=== PATIENT | male | born 1980 | race Caucasian/White ===

== ENCOUNTER 2016-07-12 20:55 | Emergency (ER) | payer SELFPAY ==
[2016-07-12] MEDS ORDERED: Morphine INJ* 4 MG/ML 1 ML CARPUJECT IV ONE ×2 (21:07→22:20)
[2016-07-12] MEDS ORDERED: Ondansetron INJ* 2 MG/ML VIAL IV ONE (21:07)
[2016-07-12] MEDS ORDERED: NS 0.9% 1000 ML* 1,000 ML IV ONE (21:07)
--- NOTE | 2016-07-12 21:43 | ED ---
I, Adiel,Angelia, scribed for Kyle Alcocer MD on 07/12/16 at 2113 . Abdominal Pain/Male - HPI Summary HPI Summary: This 36 y/o male presents to ED for gradual onset of lower abd pain since 2 days ago. Pt decided to come in to ED tonight when he became concerned with increasing pain, currently rated 9/10. Positive for n/v and chills. Negative diarrhea. Pt took ibuprofen without much relief of his abd pain. PMHx includes colitis, for which pt was admitted at [facility] 2 years ago. Pt states that his abd pain is similar to his last flare up of colitis 2 years ago. Pt denies hx of ulcer. FHx is positive for DM to father. Pt is current heavy everyday smoker and occasional drinker. - History of Current Complaint Stated Complaint: ABD PAIN Hx Obtained From: Patient, Medical Records Onset/Duration: Gradual Onset, Lasting Days - 2 days ago, Still Present Timing: Constant Pain Intensity: 9 Pain Scale Used: 0-10 Numeric Location: Discrete At: RLQ, Discrete At: LLQ Radiates: No Character: Dull, Cramping Aggravating Factor(s): Nothing Alleviating Factor(s): Nothing Associated Signs And Symptoms: Positive: Nausea, Vomiting. Negative: Fever - Allergies/Home Medications Allergies/Adverse Reactions: Allergies Allergy/AdvReac Type Severity Reaction Status Date / Time No Known Allergies Allergy Verified 03/06/16 15:11 PMH/Surg Hx/FS Hx/Imm Hx Endocrine/Hematology History: Denies: Hx Diabetes, Hx Thyroid Disease Cardiovascular History: Denies: Hx Congestive Heart Failure, Hx Hypertension Respiratory History: Denies: Hx Chronic Obstructive Pulmonary Disease (COPD) GI History: Reports: Other GI Disorders - colitis Denies: Hx Ulcer History: Denies: Hx Renal Disease Musculoskeletal History: Reports: Hx Back Problems Sensory History: Denies: Hx Contacts or Glasses Opthamlomology History: Denies: Hx Contacts or Glasses - Surgical History Surgery Procedure, Year, and Place: LEFT ARM NODES REMOVED S/P CAT SCRATCH FEVER 20 YEARS AGO Infectious Disease History: No Infectious Disease History: Reports: Hx of Known/Suspected MRSA - MRSA 09/12/13 Denies: Hx Clostridium Difficile, Hx Hepatitis, Hx Human Immunodeficiency Virus (HIV), Hx Shingles, Hx Tuberculosis, Hx Known/Suspected VRE, Hx Known/ Suspected VRSA, History Other Infectious Disease, Traveled Outside the [place] in Last 30 Days - Family History Known Family History: Positive: Cardiac Disease - grandmother, Diabetes - father - Social History Alcohol Use: Rare Hx Substance Use: No Substance Use Type: Reports: None Substance Use Comment - Amount & Last Used: occasionally Hx Tobacco Use: Yes Smoking Status (MU): Heavy Every Day Tobacco Smoker Type: Cigarettes Amount Used/How Often: 1 PPD Length of Time of Smoking/Using Tobacco: 10+ YEARS Have You Smoked in the Last Year: Yes Review of Systems Positive: Chills. Negative: Fever Positive: Abdominal Pain, Vomiting, Nausea Negative: Anxious, Depressed All Other Systems Reviewed And Are Negative: Yes Physical Exam Triage Information Reviewed: Yes Vital Signs On Initial Exam: Initial Vitals Temp Pulse Resp BP Pulse Ox 98.3 F 93 16 147/80 100 07/12/16 21:01 07/12/16 21:01 07/12/16 21:01 07/12/16 21:01 07/12/16 21:01 Vital Signs Reviewed: Yes Appearance: Positive: Well-Appearing, Pain Distress - moderate lower abd pain Skin: Positive: Warm Eyes: Positive: EMMA ENT: Positive: Hearing grossly normal Neck: Positive: Supple Respiratory/Lung Sounds: Positive: Clear to Auscultation, Breath Sounds Present Cardiovascular: Positive: RRR Abdomen Description: Positive: No Organomegaly, Soft, Other: - mild diffuse lower abd tendwernes. Negative: Guarding Bowel Sounds: Positive: Present Musculoskeletal: Positive: Strength/ROM Intact Neurological: Positive: Sensory/Motor Intact, Alert, Oriented to Person Place, Time Diagnostics - Vital Signs Vital Signs Temp Pulse Resp BP Pulse Ox 07/12/16 21:01 98.3 F 93 16 147/80 100 - Laboratory Result Diagrams: 07/12/16 21:20 07/12/16 21:20 Lab Statement: Any lab studies that have been ordered have been reviewed, and results considered in the medical decision making process. - CT Ab/P CT Interpretation: Positive (See Comments) - Focal wall thickening of the signmoid colon with pericolonic infiltration of fat most suspicious for diverticulitis with no abscess. However, given the appearance and lobulation, the possibility of underlying mass is not totally excluded and f/u exam is suggested. No hernias are noted. CT Interpretation Completed By: Radiologist Re-Evaluation - Re-Evaluation First Eval Re-Evaluation Time: 23:31 - mildly improved, results d/w pt Change: Improved Abdominal Pain Fem Course/Dx - Course Assessment/Plan: This 36 y/o male presents to ED with chief complaint of gradually worsening lower abd pain since 2 days ago. PMHx is significant for colitis, and pt states that the pain feels similar to his previous flare-up of colitis. He reports positive n/v and chills, but denies any diarrhea. Bloodwork indicates WBC of 11.3, which is similar to prior levels, and CRP of 38.57. CT Ab/P indicates diverticulitis without abscess. UA is wnl. - Diagnoses Provider Diagnoses: Diverticulitis Discharge - Discharge Plan Condition: Improved Disposition: HOME Prescriptions: Levofloxacin TAB* [Levaquin TAB*] 500 mg PO DAILY #7 tab Metronidazole [Flagyl 500 MG TAB] 500 mg PO TID #20 tab Patient Education Materials: Metronidazole (By mouth), Levofloxacin (By mouth) , Diverticulitis (ED) Referrals: [facility] REFERRAL [Outside] No Primary Care Phys,NOPCP [Primary Care Provider] - 2 Days The documentation as recorded by the Adiel vázquez Soohyun accurately reflects the service I personally performed and the decisions made by me, Kyle Alcocer MD.
[2016-07-12 21:45] LABS: Hematocrit 44 % (42-52); Hemoglobin 14.8 g/dl (14.0-18.0); Mean Corpuscular HGB Conc 33 g/dl (31-36); Mean Corpuscular Hemoglobin 29 pg (27-31); Mean Corpuscular Volume 86 fL (80-94); Mean Platelet Volume 9 um3 (7.4-10.4); Red Blood Count 5.16 10^6/ul (4.0-5.4); Red Cell Distribution Width 14 % (10.5-15); White Blood Count 11.3 10^3/ul (3.5-10.8)
[2016-07-12 21:58] LABS: Albumin 3.8 g/dL (3.2-5.2); C Reactive Protein 38.57 mg/L (< 5.00); Calcium 8.7 mg/dL (8.6-10.3); EGFR African American 131.9 (>60); EGFR Non-African American 102.6 (>60); Globulin 2.8 g/dL (2-4); Magnesium 1.9 mg/dL (1.9-2.7); Total Bilirubin 0.3 mg/dL (0.2-1.0); Total Protein 6.6 g/dL (6.4-8.9)
[2016-07-12] MEDS ORDERED: Iohexol 300* (CONTRAST) 10 ML SDV IV ONE (22:00)
[2016-07-12 22:14] LABS: Potassium 3.6 mmol/L (3.5-5.0)
[2016-07-12] MEDS ORDERED: metroNIDAZOLE IV 500 MG/100ML* 500 MG/100 ML BAG IVPB ONE (23:30)
[2016-07-12] MEDS ORDERED: HYDROmorphone INJ* 1 MG/ML CARPUJECT SYRINGE IV SLOW PU ONE (23:30)
[2016-07-12] MEDS ORDERED: Levofloxacin 500 MG IVPREMIX(* 500 MG/100 ML BAG IVPB ONE (23:30)
[2016-07-12 23:45] LABS: Urine Bilirubin Negative (Negative); Urine Glucose Negative (Negative); Urine Nitrite Negative (Negative)
[2016-07-13] MEDS ORDERED: oxyCODONE/Acetamin 5/325 MG* TAB PO ONE (01:58)
[2016-07-13 02:22] VITALS: BP 116/62
--- NOTE | 2016-07-13 07:37 | RAD ---
INDICATION: Lower abdominal pain. COMPARISON: Comparison is made with a prior CT of the abdomen and pelvis from October 31, 2013. TECHNIQUE: A CT scan of the abdomen and pelvis was performed with intravenous and oral contrast following intravenous injection of 133 ml of Omnipaque 300 nonionic contrast. Contiguous axial sections were obtained from the lung bases through the symphysis pubis. Images were reconstructed in the coronal and sagittal planes. FINDINGS: The lung bases are clear. No pleural effusion is present. The liver and spleen are mildly enlarged without significant focal abnormality. The gallbladder appears contracted. No calcified gallstones are seen. The pancreas appears to be within normal limits. The kidneys and adrenal glands are normal in size. No hydronephrosis is seen. No significant focal renal abnormality is seen. The aorta is normal in caliber and demonstrates homogeneous contrast opacification. No significant enlarged retroperitoneal lymph nodes are seen. The stomach is distended with contrast and food debris. The small bowel colon appear nondistended. The appendix is within normal limits. There is moderate sigmoid diverticulosis. There is mild thickening of the wall of the mid sigmoid colon with stranding in the adjacent mesenteric fat. These findings are nonspecific although most consistent with diverticulitis. No abscess is seen. There is a small periumbilical hernia containing fat. There is a trace amount of free intraperitoneal fluid in the pelvis. No free intraperitoneal air is seen. No significant focal osseous abnormality is seen. Note is made of small disc protrusions at the L4-L5 and L5-S1 levels. IMPRESSION: 1. FINDINGS MOST CONSISTENT WITH DIVERTICULITIS. RECOMMEND CLINICAL CORRELATION. 2. MILD HEPATOSPLENOMEGALY. 3. MODERATE GASTRIC DISTENTION WITH CONTRAST AND FOOD DEBRIS.
== END 2016-07-13 02:18 | disposition home or self-care (01) ==
LOC: ED 20:55
DX: K57.92 Diverticulitis of intestine, part unspecified, without perforation or abscess without bleeding (principal); R11.2 Nausea with vomiting, unspecified; F17.210 Nicotine dependence, cigarettes, uncomplicated; R10.9 Unspecified abdominal pain; R16.2 Hepatomegaly with splenomegaly, not elsewhere classified
CPT/HCPCS: 36415; 74177; 80053; 81003; 83605; 83690; 83735; 85025; 86140; 96374; 96375; 99284; A9270-GY; J1170; J1956; J2270; J2405; J3490; Q9967

== ENCOUNTER 2016-07-28 19:07 | Inpatient (IN) | payer SELFPAY ==
[2016-07-28] MEDS ORDERED: Ondansetron INJ* 2 MG/ML VIAL IV ONE ×2 (20:31→22:47)
[2016-07-28] MEDS ORDERED: Morphine INJ* 4 MG/ML 1 ML CARPUJECT IV ONE (20:31)
[2016-07-28] MEDS ORDERED: NS 0.9% 1000 ML* 1,000 ML IV ONE (20:31)
[2016-07-28] MEDS ORDERED: Acetaminophen TAB* 325 MG PO ONE (20:34)
[2016-07-28 20:40] LABS: Hematocrit 45 % (42-52); Hemoglobin 15.1 g/dl (14.0-18.0); Mean Corpuscular HGB Conc 33 g/dl (31-36); Mean Corpuscular Hemoglobin 28 pg (27-31); Mean Corpuscular Volume 84 fL (80-94); Mean Platelet Volume 8 um3 (7.4-10.4); Red Blood Count 5.36 10^6/ul (4.0-5.4); Red Cell Distribution Width 13 % (10.5-15); White Blood Count 11.4 10^3/ul (3.5-10.8)
[2016-07-28 20:42] LABS: Add Diff/Slide Review? Slide Review Added; Comments Flag Yes
[2016-07-28 20:51] LABS: Albumin 3.8 g/dL (3.2-5.2); BUN/Creatinine Ratio 14.8 (8-20); C Reactive Protein 1.72 mg/L (< 5.00); Calcium 8.8 mg/dL (8.6-10.3); EGFR African American 126.7 (>60); EGFR Non-African American 98.6 (>60); Globulin 2.7 g/dL (2-4); Potassium 3.6 mmol/L (3.5-5.0); Total Bilirubin 0.5 mg/dL (0.2-1.0); Total Protein 6.5 g/dL (6.4-8.9)
[2016-07-28] MEDS ORDERED: HYDROmorphone INJ* 1 MG/ML CARPUJECT SYRINGE IV SLOW PU ONE (21:05)
[2016-07-28] MEDS ORDERED: Iohexol 300* (CONTRAST) 10 ML SDV IV ONE (22:06)
[2016-07-28 22:13] LABS: Urine Bilirubin Negative (Negative); Urine Glucose Negative (Negative); Urine Nitrite Negative (Negative)
[2016-07-28] MEDS ORDERED: HYDROmorphone INJ* 2 MG/ML CARPUJECT SYRINGE IV SLOW PU ONE (22:46)
[2016-07-28] MEDS ORDERED: Ondansetron INJ* 2 MG/ML VIAL ONE (22:49)
--- NOTE | 2016-07-28 22:56 | RAD ---
Indication: Left lower quadrant pain. Contrast: Administered 150.0 ml of OMNIPAQUE 300 mgi/ml CT of the abdomen and pelvis was performed after oral and IV contrast administration. Lung bases demonstrate no pleural fluid, nodules or masses. Heart is of normal size without evidence of pericardial effusion. Liver is normal in size. No focal lesions or intrahepatic ductal dilatation is noted. The gallbladder is partially contracted. No calcified gallstones are noted. Pancreas demonstrates no mass or pancreatic ductal dilatation. The common duct is not dilated. The spleen is normal in size. No adrenal lesions are noted. The kidneys demonstrate symmetric nephrograms without focal lesions. No hydronephrosis is noted. Pancreas demonstrates no mass or pancreatic duct dilatation. No dilated loops of bowel are noted. Aorta and inferior vena cava are unremarkable. No retroperitoneal lymphadenopathy is noted. CT of the pelvis demonstrates diverticulosis of sigmoid colon. Pericolonic infiltration of fat is noted especially in the sigmoid colon consistent diverticulitis. No definite peridiverticular abscess is noted. The prostate is unremarkable. The bladder is unremarkable. IMPRESSION: DIVERTICULITIS OF THE SIGMOID COLON. NO EVIDENCE OF PERIDIVERTICULAR ABSCESS IS NOTED.
[2016-07-28] MEDS ORDERED: Piperac/Tazob 3.375 gm in NS* 3.375 GM/100 ML BAG IVPB ONE (23:30)
[2016-07-29] MEDS ORDERED: Ketorolac INJ* 30 MG/ML 1 ML VIAL IV PUSH ONE (01:39)
[2016-07-29] MEDS ORDERED: HYDROmorphone INJ* 1 MG/ML CARPUJECT SYRINGE ONE (02:08)
[2016-07-29] MEDS: HYDROmorphone INJ* 1 MG/ML CARPUJECT SYRINGE IV SLOW PU PRN ×8 (02:11→22:26)
[2016-07-29] MEDS: Piperac/Tazob 3.375 gm in NS* 3.375 GM/100 ML BAG IVPB SCH ×3 (06:00→20:03)
[2016-07-29] MEDS: Ondansetron INJ* 2 MG/ML VIAL IV PRN (06:03)
[2016-07-29] MEDS: NS 0.9% 1000 ML* 1,000 ML IV SCH ×2 (07:40→18:36)
--- NOTE | 2016-07-29 10:26 | HP ---
HISTORY AND PHYSICAL: DATE OF ADMISSION: 07/29/16 CHIEF COMPLAINT: Abdominal pain. HISTORY OF PRESENT ILLNESS: The patient is a 36-year-old gentleman who presents to [facility] with the chief complaint of abdominal pain. The pain is mostly in his left lower abdomen. It has been going on for 2 to 3 days. He had this before and was diagnosed with diverticulitis. In fact, about 11 days ago, he had it treated and was given Cipro and Flagyl, and initially felt better, but it came back quickly thereafter. He was also here a year ago with a similar complaint and treated at that time as well. PAST MEDICAL HISTORY: Significant only for diverticulitis. MEDICATIONS: He is on no medications. ALLERGIES: He has no known drug allergies. FAMILY HISTORY: Mother alive at 58, status post motor vehicle accident. His father is alive, has diabetes mellitus. SOCIAL HISTORY: He smokes half a pack a day for several years. No alcohol or recreational drug use. 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 He is not . He has one son. REVIEW OF SYSTEMS: A 14-point review of systems is completed with the patient. All pertinent positives and negatives are in the history of present illness, otherwise it is negative. PHYSICAL EXAMINATION GENERAL: A very pleasant gentleman lying in bed, in no acute distress. VITAL SIGNS: Temperature 98.5 degrees, heart rate 62 beats per minute, respiratory rate 14 breaths per minute, blood pressure 103/56. HEENT: Normocephalic and atraumatic. Pupils are equal, round and reactive to light. Moist mucous membranes. NECK: Supple. No JVD, bruits, palpable thyroid or lymphadenopathy. CHEST: Clear to auscultation and percussion bilaterally. CARDIOVASCULAR: S1, S2 appreciated. Regular rate and rhythm. ABDOMEN: Positive bowel sounds in all 4 quadrants. Soft, tender in the left lower quadrant. No rebound or guarding. No rigidity. EXTREMITIES: No cyanosis, clubbing, or edema. +2 peripheral pulses bilaterally. NEUROLOGIC: Alert and oriented x3. Moves all extremities. SKIN: No distinct rashes or abnormalities. LABORATORY DATA: White count 11.4, hemoglobin 15.1, hematocrit 45, platelets 245. Sodium 134, potassium 3.6, chloride 103, CO2 27, BUN 13, creatinine [1.88?] , glucose 107, lactic acid 2.2. Urinalysis unremarkable. Influenza is unremarkable. Abdominal/pelvic CT shows diverticulitis of the sigmoid colon, no evidence of periventricular abscess is noted. ASSESSMENT AND PLAN: 1. Diverticulitis. The patient failed outpatient treatments. Start Zosyn 3.375 mg continuous infusion. Dilaudid p.r.n. for pain. Monitor for improvement. I explained to patient that with numerous episodes, he may be a candidate for surgery in the future. 2. FEN. Regular diet. 3. DVT prophylaxis. None. He is young and ambulatory. 4. The patient is a full code. TIME SPENT: Over 75 minutes were spent on this H and P, more than 40 minutes of which were spent in direct [id number] contact with the patient in evaluation, physical exam, counseling, and coordination of care. [id number]/[facility] #: [id number] MTDD
--- NOTE | 2016-07-29 16:03 | PN ---
Subjective Date of Service: 07/29/16 Interval History: This is a 36 yo gentleman admitted early this am with complaints of abdominal pain, found to have evidence of diverticulitis on CT. He was recently treated for diverticulitis as an outpt and his symptoms did improve and then return again 2-3 days ago. This afternoon, he is still having significant pain which is fairly well managed with frequent doses of IV Dilaudid. Tolerating liquids well. No nausea or vomiting. Objective Active Medications: Hydromorphone HCl (Dilaudid Iv*) 1.5 mg IV SLOW PU Q2H PRN PRN Reason: PAIN Last Admin: 07/29/16 14:40 Dose: 1.5 mg Sodium Chloride (Ns 0.9% 1000 Ml*) 1,000 mls @ 100 mls/hr IV PER RATE YIFAN Last Admin: 07/29/16 07:40 Dose: 100 mls/hr Piperacillin Sod/Tazobactam Sod (Zosyn 3.375 Gm In Ns Premix*) 3.375 gm in 100 mls @ 25 mls/hr IVPB Q8H YIFAN Last Admin: 07/29/16 13:16 Dose: 25 mls/hr Ondansetron HCl (Zofran Inj*) 4 mg IV Q4H PRN PRN Reason: NAUSEA Last Admin: 07/29/16 06:03 Dose: 4 mg Vital Signs: Temp Pulse Resp BP Pulse Ox 101.5 F 92 14 147/66 96 07/29/16 15:20 07/29/16 15:20 07/29/16 15:40 07/29/16 15:20 07/29/16 15:20 Oxygen Devices in Use Now: None Appearance: Mildly uncomfortable appearing but in NAD Neck: NL Appearance and Movements; NL JVP Respiratory: Symmetrical Chest Expansion and Respiratory Effort, Clear to Auscultation Cardiovascular: NL Sounds; No Murmurs; No JVD, RRR Abdominal: - - LLQ TTP, quiet bowel sounds, soft Extremities: No Edema Skin: No Rash or Ulcers Neurological: Alert and Oriented x 3 Result Diagrams: 07/28/16 20:15 07/28/16 20:15 Diagnostic Imaging: CT abd/pelvis - sigmoid colon diverticulitis Assess/Plan/Problems-Billing Assessment: This is a 36 yo otherwise healthy gentleman who presents with acute diverticulitis after recently completing outpatient therapy. - Patient Problems (1) Acute diverticulitis Comment: Dianna Lucas Still requiring frequent doses of IV abx, tolerating a clear diet This is his 3rd bout of diverticulitis, would recommend surgery consult as an outpatient Status and Disposition: Continue inpatient stay, anticipate discharge in ~2 days
[2016-07-30] MEDS: HYDROmorphone INJ* 1 MG/ML CARPUJECT SYRINGE IV SLOW PU PRN ×8 (01:15→22:20)
[2016-07-30] MEDS: Acetaminophen TAB* 325 MG PO PRN ×2 (02:34→23:45)
[2016-07-30] MEDS: Piperac/Tazob 3.375 gm in NS* 3.375 GM/100 ML BAG IVPB SCH ×3 (04:27→20:07)
[2016-07-30 08:18] LABS: Hematocrit 43 % (42-52); Hemoglobin 14.4 g/dl (14.0-18.0); Mean Corpuscular HGB Conc 33 g/dl (31-36); Mean Corpuscular Hemoglobin 29 pg (27-31); Mean Corpuscular Volume 85 fL (80-94); Mean Platelet Volume 8 um3 (7.4-10.4); Red Blood Count 5.06 10^6/ul (4.0-5.4); Red Cell Distribution Width 13 % (10.5-15); White Blood Count 5.1 10^3/ul (3.5-10.8)
[2016-07-30 08:36] LABS: BUN/Creatinine Ratio 6.7 (8-20); C Reactive Protein 64.12 mg/L (< 5.00); Calcium 8.4 mg/dL (8.6-10.3); EGFR African American 123.5 (>60); Potassium 3.5 mmol/L (3.5-5.0)
[2016-07-30] MEDS: NS 0.9% 1000 ML* 1,000 ML IV SCH (10:18)
[2016-07-30] MEDS ORDERED: Ketorolac INJ* 30 MG/ML 1 ML VIAL IV PUSH PRN (11:02)
--- NOTE | 2016-07-30 15:29 | PN ---
Subjective Date of Service: 07/30/16 Interval History: Patient reports persistent abdominal pain that remains essentially unchanged from admission. Denies diarrhea, actually, he has not had a BM since admission. Denies significant nausea or vomiting. He is eating mostly liquids with some crackers and ice cream. Also of note, his mother called the medical floor and spoke with his nurse to report that he's actively been using methamphetamine. Objective Active Medications: Acetaminophen (Tylenol Tab*) 650 mg PO Q4H PRN PRN Reason: FEVER/PAIN Last Admin: 07/30/16 02:34 Dose: 650 mg Hydromorphone HCl (Dilaudid Iv*) 1.5 mg IV SLOW PU Q2H PRN PRN Reason: PAIN Last Admin: 07/30/16 13:09 Dose: 1.5 mg Sodium Chloride (Ns 0.9% 1000 Ml*) 1,000 mls @ 100 mls/hr IV PER RATE YIFAN Last Admin: 07/30/16 10:18 Dose: 100 mls/hr Piperacillin Sod/Tazobactam Sod (Zosyn 3.375 Gm In Ns Premix*) 3.375 gm in 100 mls @ 25 mls/hr IVPB Q8H YIFAN Last Admin: 07/30/16 12:26 Dose: 25 mls/hr Ketorolac Tromethamine (Toradol Inj*) 30 mg IV PUSH Q6H PRN PRN Reason: PAIN Last Admin: 07/30/16 11:29 Dose: 30 mg Ondansetron HCl (Zofran Inj*) 4 mg IV Q4H PRN PRN Reason: NAUSEA Last Admin: 07/29/16 06:03 Dose: 4 mg Vital Signs: Temp Pulse Resp BP Pulse Ox 97.5 F 60 16 122/70 96 07/30/16 11:20 07/30/16 11:20 07/30/16 13:09 07/30/16 11:20 07/30/16 11:20 Oxygen Devices in Use Now: None Appearance: Mildly ill appearing and uncomfortable yound gentleman. Respiratory: Symmetrical Chest Expansion and Respiratory Effort, Clear to Auscultation Cardiovascular: NL Sounds; No Murmurs; No JVD, RRR Abdominal: - - bowel sounds present, LLQ TTP, soft Extremities: No Edema Skin: No Rash or Ulcers Neurological: Alert and Oriented x 3 Result Diagrams: 07/30/16 07:55 07/30/16 07:55 Microbiology and Other Data: Microbiology 07/29/16 07:42 Aerobic Blood Culture - Preliminary Blood Venous No Growth Day 1 Anaerobic Blood Culture - Preliminary No Growth Day 1 Diagnostic Imaging: CT abd/pelvis - sigmoid colon diverticulitis Assess/Plan/Problems-Billing Assessment: This is a 36 yo otherwise healthy gentleman who presents with acute diverticulitis after recently completing outpatient therapy. - Patient Problems (1) Acute diverticulitis Comment: No significant improvement clinically since admission, but he has been afebrile for ~18 hours and leukocytosis has resolved Cont Zosyn Still requiring frequent doses of IV abx, tolerating a mostly liquid diet Will use toradol for adjunct pain control This is his 3rd bout of diverticulitis, would recommend surgery consult as an outpatient (2) Substance abuse Comment: Patient's mother reports methamphetamine abuse No urine toxicology done at admission, will check now to eval for additional substances that may be contributing to this acute picture Status and Disposition: Continue inpatient stay, anticipate discharge in 1-2 days
[2016-07-30 21:03] LABS: Benzodiazepine Urine Screen None Detected (None Detect)
[2016-07-30] MEDS: Ondansetron INJ* 2 MG/ML VIAL IV PRN (23:42)
[2016-07-31] MEDS: Acetaminophen TAB* 325 MG PO PRN (03:51)
[2016-07-31] MEDS: Piperac/Tazob 3.375 gm in NS* 3.375 GM/100 ML BAG IVPB SCH ×2 (04:35→12:42)
[2016-07-31] MEDS: NS 0.9% 1000 ML* 1,000 ML IV SCH (06:14)
[2016-07-31] MEDS ORDERED: oxyCODONE TAB* 5 MG TAB PO PRN (07:52)
[2016-07-31 15:32] LABS: Hematocrit 41 % (42-52); Hemoglobin 14.1 g/dl (14.0-18.0); Mean Corpuscular HGB Conc 34 g/dl (31-36); Mean Corpuscular Hemoglobin 29 pg (27-31); Mean Corpuscular Volume 84 fL (80-94); Mean Platelet Volume 8 um3 (7.4-10.4); Red Blood Count 4.89 10^6/ul (4.0-5.4); Red Cell Distribution Width 13 % (10.5-15); White Blood Count 5.3 10^3/ul (3.5-10.8)
[2016-07-31 15:46] LABS: BUN/Creatinine Ratio 11.8 (8-20); C Reactive Protein 39.49 mg/L (< 5.00); Calcium 8.5 mg/dL (8.6-10.3); EGFR African American 150.1 (>60); EGFR Non-African American 116.7 (>60); Potassium 3.5 mmol/L (3.5-5.0)
[2016-07-31 17:19] VITALS: BP 126/67
--- NOTE | 2016-07-31 23:46 | DS ---
DISCHARGE SUMMARY: DATE OF ADMISSION: 07/29/16 DATE OF DISCHARGE: 07/31/16 PRIMARY CARE PROVIDER: Joseph Nur NP DISCHARGING PROVIDER: ANGEL Calderón SUPERVISING PHYSICIAN: Dr. Lillie Malhotra.* (DICTATED BY ANGEL CALDERÓN) PRIMARY DISCHARGE DIAGNOSIS: Acute diverticulitis. SECONDARY DISCHARGE DIAGNOSES: 1. Recurrent diverticulitis. 2. Substance abuse. DISCHARGE MEDICATIONS: 1. Cipro 500 mg p.o. b.i.d. x2 weeks. 2. Flexeril 10 mg p.o. t.i.d. as needed. 3. Flagyl 500 mg p.o. t.i.d. x2 weeks. Medication changes: 1. Cipro x14 days. 2. Flagyl x14 days. HOSPITAL IMAGING: CT of the abdomen and pelvis showed evidence of diverticulitis of the sigmoid colon. No evidence of abscess appreciated. HOSPITAL COURSE: This is a 36-year-old gentleman with two prior episodes of diverticulitis and history of methamphetamine abuse, who presented to the emergency department with complaints of abdominal pain. The patient had been treated for diverticulitis approximately 2 weeks prior and had completed a course of Cipro and Flagyl and reported that he was initially feeling better for several days and then 3 days prior to admission, he began having left lower quadrant abdominal pain again. The patient had mild leukocytosis when he reached the emergency department with white blood cell count of 11,400 and was febrile with maximum temperature of 100.[address] scan showed evidence of acute diverticulitis in the sigmoid colon. The patient was subsequently admitted for acute diverticulitis and started on Zosyn. He required frequent doses of IV opiate for 36 hours of his hospital admission at which point his pain began to improve. He is able to tolerate a soft diet prior to discharge, did not require anything except for Tylenol for at least 12 hours prior to leaving the hospital. This is the patient's third bout of diverticulitis; his first was a couple of years ago and second a couple of weeks ago, this being his third. The patient would benefit from outpatient followup with surgeon for consultation as to whether partial colectomy may be indicated due to the recurrence of infection. Of note, the patient's parents were involved in his hospital stay and reported that he has a history of substance abuse mainly methamphetamines. This did not seem to contribute significantly to his hospital stay. DISPOSITION: The patient is being discharged to home where he lives with his mother. Followup has been arranged with the new primary care provider, Joseph Nur NP, and an appointment established in approximately 2 weeks. He is discharged with 2 weeks of Cipro and Flagyl. He does require outpatient surgery consultation after completing antibiotics. ANGEL CALDERÓN CC: Joseph Nur NP* [id number]/[facility] #: [id number] MTDD
--- NOTE | 2016-09-25 22:16 | ED ---
krystian Willis Timothy, scribed for Buddy Carvalho on 07/28/16 at 203 . Abdominal Pain/Male - HPI Summary HPI Summary: Yohannes Arriaza is a 36 yo male presenting to [facility] with 10/10 lower abd cramping, weakness, diarrhea, vomiting, and chills since 0800 yesterday. Pt was here 10 days ago and Dx with diverticulitis per the report. His last dose of ABx was 2 days ago. His MHx is pertinent for diverticulitis, colitis, MRSA, and tobacco use. - History of Current Complaint Chief Complaint: EDAbdPain Stated Complaint: ABD PAIN Time Seen by Provider: 07/28/16 20:20 Hx Obtained From: Patient Onset/Duration: Sudden Onset, Lasting Days, Still Present Timing: Constant Severity Initially: Moderate Severity Currently: Moderate Pain Intensity: 10 Pain Scale Used: 0-10 Numeric Location: Discrete At: RLQ, Discrete At: LLQ Character: Cramping Aggravating Factor(s): Nothing Alleviating Factor(s): Nothing Associated Signs And Symptoms: Positive: Diarrhea - Allergies/Home Medications Allergies/Adverse Reactions: Allergies Allergy/AdvReac Type Severity Reaction Status Date / Time No Known Allergies Allergy Verified 07/28/16 19:18 PMH/Surg Hx/FS Hx/Imm Hx Endocrine/Hematology History: Denies: Hx Diabetes, Hx Thyroid Disease Cardiovascular History: Denies: Hx Congestive Heart Failure, Hx Hypertension Respiratory History: Denies: Hx Chronic Obstructive Pulmonary Disease (COPD) GI History: Reports: Other GI Disorders - colitis Denies: Hx Ulcer History: Denies: Hx Renal Disease Musculoskeletal History: Reports: Hx Back Problems Sensory History: Denies: Hx Contacts or Glasses Opthamlomology History: Denies: Hx Contacts or Glasses - Surgical History Surgery Procedure, Year, and Place: LEFT ARM NODES REMOVED S/P CAT SCRATCH FEVER 20 YEARS AGO Infectious Disease History: No Infectious Disease History: Reports: Hx of Known/Suspected MRSA - MRSA 09/12/13 Denies: Hx Clostridium Difficile, Hx Hepatitis, Hx Human Immunodeficiency Virus (HIV), Hx Shingles, Hx Tuberculosis, Hx Known/Suspected VRE, Hx Known/ Suspected VRSA, History Other Infectious Disease, Traveled Outside the [place] in Last 30 Days - Family History Known Family History: Positive: Cardiac Disease - grandmother, Diabetes - father Family History: R & n/C - Social History Alcohol Use: Rare Hx Substance Use: No Substance Use Type: Reports: None Substance Use Comment - Amount & Last Used: occasionally Hx Tobacco Use: Yes Smoking Status (MU): Heavy Every Day Tobacco Smoker Type: Cigarettes Amount Used/How Often: 1 PPD Length of Time of Smoking/Using Tobacco: 10+ YEARS Have You Smoked in the Last Year: Yes Review of Systems Positive: Chills Eyes: Negative ENT: Negative Cardiovascular: Negative Respiratory: Negative Positive: Abdominal Pain, Vomiting, Diarrhea Genitourinary: Negative Musculoskeletal: Negative Skin: Negative Positive: Weakness Psychological: Normal All Other Systems Reviewed And Are Negative: Yes Physical Exam Triage Information Reviewed: Yes Vital Signs On Initial Exam: Initial Vitals Temp Pulse Resp BP Pulse Ox 100.7 F 105 20 144/84 100 07/28/16 19:14 07/28/16 19:14 07/28/16 19:14 07/28/16 19:14 07/28/16 19:14 Vital Signs Reviewed: Yes Appearance: Positive: Well-Appearing, No Pain Distress Skin: Positive: Warm, Skin Color Reflects Adequate Perfusion, Dry Head/Face: Positive: Normal Head/Face Inspection Eyes: Positive: EOMI, EMMA ENT: Positive: Normal ENT inspection, Hearing grossly normal. Negative: Muffled /hoarse voice Neck: Positive: Supple, Nontender Respiratory/Lung Sounds: Positive: Clear to Auscultation, Breath Sounds Present Cardiovascular: Positive: RRR, Pulses are Symmetrical in both Upper and Lower Extremities Abdomen Description: Positive: Soft. Negative: Nontender - LLQ tenderness Bowel Sounds: Positive: Present Musculoskeletal: Positive: Normal, Strength/ROM Intact Neurological: Positive: Normal, Sensory/Motor Intact, Alert, Oriented to Person Place, Time Psychiatric: Positive: Normal Diagnostics - Vital Signs Vital Signs Temp Pulse Resp BP Pulse Ox 07/28/16 19:14 100.7 F 105 20 144/84 100 - Laboratory Result Diagrams: 07/28/16 20:15 07/28/16 20:15 Lab Statement: Any lab studies that have been ordered have been reviewed, and results considered in the medical decision making process. - CT A/P CT Interpretation: No Acute Changes - IMPRESSION: DIVERTICULITIS OF THE SIGMOID COLON. NO EVIDENCE OF PERIDIVERTICULAR ABSCESS IS NOTED. CT Interpretation Completed By: Radiologist Re-Evaluation - Re-Evaluation First Eval Re-Evaluation Time: 23:39 Change: Unchanged Comment: Pt was informed of test results and decision to admit to [facility]. Abdominal Pain Fem Course/Dx - Course Assessment/Plan: Yohannes Arriaza is a 36 yo male presenting to [facility] with abd pain, vomiting, diarrhea, and weakness, with a Dx of diverticulitis 10 days prior. After review of his CT and lab work, and discussion with Dr. Alvares, he will be admitted to [facility]. - Diagnoses Provider Diagnoses: Diverticulitis - Provider Notifications Discussed Care Of Patient With: 2331 - Dr. Alvares (hospitalist) - discussed Pt condition, agrees to admit Pt. Discharge - Discharge Plan Condition: Stable Disposition: ADMITTED TO [facility] Referrals: No Primary Care Phys,NOPCP [Primary Care Provider] - The documentation as recorded by the krystian vázquez Timothy accurately reflects the service I personally performed and the decisions made by me, Buddy Carvalho.
== END 2016-07-31 17:20 | disposition home or self-care (01) | DRG 392 ==
LOC: ED 19:07 → MED 07-29 03:39 → MEDTELE 07-29 05:12 → MED 07-29 21:05
PROVIDERS: ADMIT Internal Medicine; ATTEND Internal Medicine
DX: K57.32 Diverticulitis of large intestine without perforation or abscess without bleeding (principal); F15.10 Other stimulant abuse, uncomplicated; F17.210 Nicotine dependence, cigarettes, uncomplicated; Z83.3 Family history of diabetes mellitus
CPT/HCPCS: 36415; 74177; 80048; 80053; 80307; 81003; 83605; 83690; 85025; 86140; 87040; 87502; 87641; A9270-GY; J1170; J1885; J2270; J2405; J2543; Q9967

== ENCOUNTER 2016-09-14 21:36 | Emergency (ER) | payer SELFPAY ==
[2016-09-14 22:24] VITALS: BP 122/76
== END 2016-09-15 00:38 | disposition left against medical advice (07) ==
LOC: ED 21:36
DX: S09.93XA Unspecified injury of face, initial encounter (principal); Y09 Assault by unspecified means; Y93.9 Activity, unspecified; Y92.9 Unspecified place or not applicable; Z53.21 Procedure and treatment not carried out due to patient leaving prior to being seen by health care provider

== ENCOUNTER 2016-11-20 19:08 | Emergency (ER) | payer SELFPAY ==
[2016-11-20 19:20] VITALS: BP 137/69
[2016-11-20] MEDS ORDERED: Fluorescein Sodium TOPICAL* 1 MG TEST OPHTHALMIC ONE (19:45)
[2016-11-20] MEDS ORDERED: Tetracaine 0.5% OPTH.SOL 4 ML* 1 DROP BTL LEFT EYE ONE (19:46)
[2016-11-20] MEDS ORDERED: BSS OPTH.SOL* BTL OPHTHALMIC ONE (19:46)
[2016-11-20] MEDS ORDERED: Tetracaine 0.5% OPTH.SOL 15ML* BTL ONE (19:49)
--- NOTE | 2016-11-20 20:03 | UC ---
Eye Complaint HPI - HPI Summary HPI Summary: 36 y/o male presents to the urgent care c/o metal particle in his left eye after grinding metal yesterday. He reports he woke up with yellowish eye discharge this morning and is still bothering him. Now he has a HANEY which is 5/ 10. He also states he had a pimple in his upper lip and squeezed it yesterday and now is swollen with some crust. He denies eye pain,photophobia, fever, SOB , chest pain, visual disturbances, N/V/D. - History of Current Complaint Chief Complaint: UCEye Stated Complaint: METAL SHAVING IN EYE,SWOLLEN LIP Time Seen by Provider: 11/20/16 19:34 Hx Obtained From: Patient Onset/Duration: Sudden Onset, Lasting Days, Still Present Timing: Constant Severity Initially: Moderate Severity Currently: Moderate Pain Intensity: 5 Pain Scale Used: 0-10 Numeric Location of Injury: Conjunctiva Character: Foreign Body Sensation - foreigh body sensation in the upper lateral side of his eye Aggravating Factor(s): Blinking Alleviating Factor(s): Eye Drops Associated Signs And Symptoms: Positive: Drainage (Purulent). 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 - Risk Factors Penetrating Injury Risk Factor: Grinding Globe Rupture Risk Factors: Negative Acute Glaucoma Risk Factors: Negative - Allergies/Home Medications Allergies/Adverse Reactions: Allergies Allergy/AdvReac Type Severity Reaction Status Date / Time No Known Allergies Allergy Verified 11/20/16 19:13 PMH/Surg Hx/FS Hx/Imm Hx Previously Healthy: Yes Respiratory History: Asthma - Surgical History Surgical History: Yes Surgery Procedure, Year, and Place: LEFT ARM NODES REMOVED S/P CAT SCRATCH FEVER 20 YEARS AGO - Family History Known Family History: Positive: Cardiac Disease - grandmother, Hypertension, Diabetes - father Family History: R & n/C - Social History Occupation: Employed Full-time Lives: With Family Alcohol Use: None Substance Use Type: None Substance Use Comment - Amount & Last Used: History of marijuana, pt denies now Smoking Status (MU): Light Every Day Tobacco Smoker Type: Cigarettes Amount Used/How Often: 1/2 PPD Length of Time of Smoking/Using Tobacco: 10+ YEARS Have You Smoked in the Last Year: Yes Household Exposure Type: Cigarettes - Immunization History Most Recent Influenza Vaccination: NONE Most Recent Tetanus Shot: 2013 Most Recent Pneumonia Vaccination: NONE Review of Systems Constitutional: Negative Skin: Rash - upper lip with crusting rash Eyes: Eye Redness, Other - foreing body sensation in left eye ENT: Negative Respiratory: Negative Cardiovascular: Negative Gastrointestinal: Negative Genitourinary: Negative Motor: Negative Neurovascular: Negative Musculoskeletal: Negative Neurological: Negative Psychological: Negative All Other Systems Reviewed And Are Negative: Yes Physical Exam Triage Information Reviewed: Yes Appearance: Well-Appearing, No Pain Distress, Well-Nourished, Obese Vital Signs: Initial Vital Signs Temp 97.6 F 11/20/16 19:13 Pulse 76 11/20/16 19:13 Resp 16 11/20/16 19:13 BP 137/69 11/20/16 19:13 Pulse Ox 98 11/20/16 19:13 Vital Signs Reviewed: Yes Eye Exam: Normal Eyes: Positive: Conjunctiva Inflamed - Eyes: RT eye with conjunctiva clear, sclera is white. LF eye with imflamed conjunctiva and clear eye discharge. PERRLA. EOMI w/o any nystagmus or strabismus. Fundi appears benign. Disks are well delineated. There are no hemorrhages or exudates. Visual acuity is 20/20 bilaterally, and visual ng are within normal limits. No foreign body under eyelids observed with naked eye. ENT Exam: Normal ENT: Positive: Normal ENT inspection, Hearing grossly normal, Pharynx normal, TMs normal Dental Exam: Normal Neck exam: Normal Neck: Positive: Supple, Nontender, No Lymphadenopathy Respiratory Exam: Normal Respiratory: Positive: Chest non-tender, Lungs clear, Normal breath sounds Cardiovascular Exam: Normal Cardiovascular: Positive: RRR, No Murmur, Pulses Normal Abdominal Exam: Normal Abdomen Description: Positive: Nontender, No Organomegaly, Soft Bowel Sounds: Positive: Present Musculoskeletal Exam: Normal Musculoskeletal: Positive: Strength Intact, ROM Intact, No Edema Neurological Exam: Normal Psychological Exam: Normal Skin: Positive: rashes - Upper lip with a yellowish crusting eruption, no tenerness on palpation, mildly swollen. Eye Complaint Course/Dx - Course Course Of Treatment: 36 y/o male c/o metal particle in his left eye after metal grinding since yesterday. Hx Obtaine. PE abnormal findings:Eyes: RT eye with conjunctiva clear, sclera is white. LF eye with imflamed conjunctiva and clear eye discharge. PERRLA. EOMI w/o any nystagmus or strabismus. Fundi appears benign. Disks are well delineated. There are no hemorrhages or exudates. Visual acuity is 20/20 bilaterally, and visual ng are within normal limits. No foreign body under eyelids observed with naked eye. -2 drops of Tetracaine opht drops place on Pt's left eye, then irrigated with saline drops to flush any foreign particle, then fluorescein intillation and examination with a wood' s lamp. Postive corneal abrasion observed at 2 Oclock.No foreing body identified. After procedure Pt felt better. Pt Rx Erythromycin opthalmic ointment and Advised to f/u on Wednesday at [facility] [place]. - Rash on upper lip, Most likely Impetigo, Pt Rx Mupirocin topical 2% and advised skin hygiene. -Headache: Pt Rx Ibuprofen 800mg PO prm to alleviate symptoms. - Differential Dx/Diagnosis Differential Diagnosis/HQI/PQRI: Conjunctivitis, Corneal Abrasion, Foreign Body , Penetrating Injury, Periorbital Cellulitis, Orbital Cellulitis Provider Diagnoses: Left eye corneal abrasion, Headache, Impetigo Discharge - Discharge Plan Condition: Stable Disposition: HOME Prescriptions: Erythromycin OPTH OINT* 1 applic LEFT EYE QID #1 ophth.oint Ibuprofen TAB* [Motrin TAB* 800 MG] 800 mg PO Q6H #20 tab Mupirocin 2% OINT* [Bactroban 2 % Oint*] 1 applic TOPICAL BID #1 tube Patient Education Materials: Corneal Abrasion (ED), Folliculitis (ED) Forms: *Work Release Referrals: [facility] [place] [facility] REFERR[facility] [Outside] No Primary Care Phys,NOPCP [Primary Care Provider] - Torres Renae MD [Medical Doctor] - 3 Days Additional Instructions: Please apply medications as instructed. If you continue having eye discomfort despite the antibiotics please make an appt with an visual stylist at [facility] for further evaluation and treatment. Take ibuprofen to alleviate your Headache. Please avoid rubbing your eye and rest.
== END 2016-11-20 20:48 | disposition home or self-care (01) ==
LOC: UCEAST 19:08
DX: S05.02XA Injury of conjunctiva and corneal abrasion without foreign body, left eye, initial encounter (principal); W26.8XXA Contact with other sharp object(s), not elsewhere classified, initial encounter; R51 Headache; L01.00 Impetigo, unspecified
CPT/HCPCS: 99212; A9270-GY; G0463

== ENCOUNTER 2016-11-26 20:21 | Emergency (ER) | payer SELFPAY ==
[2016-11-26] MEDS ORDERED: Ondansetron INJ* 2 MG/ML VIAL IV ONE (23:14)
[2016-11-26] MEDS ORDERED: Morphine INJ* 2 MG/ML 1 ML SYRINGE IV ONE (23:14)
[2016-11-26] MEDS ORDERED: NS 0.9% 1000 ML* 1,000 ML IV ONE (23:14)
--- NOTE | 2016-11-26 23:50 | ED ---
krystian Willis Timothy, scribed for Kyle Alcocer MD on 11/26/16 at 2315 . Abdominal Pain/Male - HPI Summary HPI Summary: Yohannes Arriaza Jr. is a 36 yo male presenting to [facility] with 6/10 lower abd pain since 11/23/16 morning. Pt states he believes it is a flare up of diverticulitis. He also c/o N/V/D. He states he did not follow up with a surgeon after his last Dx a few months ago as instructed, but feels that it is time to do so now. He has self-medicated with ibuprofen with no relief. His MHx includes diverticulitis, back problems, confirmed MRSA, and tobacco use. - History of Current Complaint Chief Complaint: EDAbdPain Stated Complaint: CHEST/ABD PAIN Time Seen by Provider: 11/26/16 23:12 Hx Obtained From: Patient Onset/Duration: Gradual Onset, Lasting Days, Still Present Timing: Constant, Lasting Days Severity Initially: Moderate Severity Currently: Moderate Pain Intensity: 6 Pain Scale Used: 0-10 Numeric Location: Diffuse Radiates: No Associated Signs And Symptoms: Positive: Nausea, Vomiting, Diarrhea - Allergies/Home Medications Allergies/Adverse Reactions: Allergies Allergy/AdvReac Type Severity Reaction Status Date / Time No Known Allergies Allergy Verified 11/20/16 19:13 PMH/Surg Hx/FS Hx/Imm Hx Endocrine/Hematology History: Denies: Hx Diabetes, Hx Thyroid Disease Cardiovascular History: Denies: Hx Congestive Heart Failure, Hx Hypertension Respiratory History: Denies: Hx Chronic Obstructive Pulmonary Disease (COPD) GI History: Reports: Other GI Disorders - diverticulitis Denies: Hx Ulcer History: Denies: Hx Renal Disease Musculoskeletal History: Reports: Hx Back Problems Sensory History: Denies: Hx Contacts or Glasses Opthamlomology History: Denies: Hx Contacts or Glasses - Surgical History Surgery Procedure, Year, and Place: LEFT ARM NODES REMOVED S/P CAT SCRATCH FEVER 20 YEARS AGO Infectious Disease History: No Infectious Disease History: Denies: Hx Clostridium Difficile, Hx Hepatitis, Hx Human Immunodeficiency Virus (HIV), Hx of Known/Suspected MRSA, Hx Shingles, Hx Tuberculosis, Hx Known/ Suspected VRE, Hx Known/Suspected VRSA, History Other Infectious Disease, Traveled Outside the [place] in Last 30 Days - Family History Known Family History: Positive: Cardiac Disease - grandmother, Hypertension, Diabetes - father Family History: R & n/C - Social History Alcohol Use: None Hx Substance Use: No Substance Use Type: Reports: None Substance Use Comment - Amount & Last Used: History of marijuana, pt denies now Hx Tobacco Use: Yes Smoking Status (MU): Light Every Day Tobacco Smoker Type: Cigarettes Amount Used/How Often: 1/2 PPD Length of Time of Smoking/Using Tobacco: 10+ YEARS Have You Smoked in the Last Year: Yes Review of Systems Constitutional: Negative Eyes: Negative ENT: Negative Cardiovascular: Negative Respiratory: Negative Positive: Abdominal Pain, Vomiting, Nausea Genitourinary: Negative Musculoskeletal: Negative Skin: Negative Neurological: Negative Psychological: Normal All Other Systems Reviewed And Are Negative: Yes Physical Exam Triage Information Reviewed: Yes Vital Signs On Initial Exam: Initial Vitals Temp Pulse Resp BP Pulse Ox 98.3 F 76 19 129/73 97 11/26/16 20:33 11/26/16 20:33 11/26/16 20:33 11/26/16 20:33 11/26/16 20:33 Vital Signs Reviewed: Yes Appearance: Positive: Well-Appearing, Pain Distress - mild discomfort Skin: Positive: Warm Head/Face: Positive: Normal Head/Face Inspection Eyes: Positive: EMMA ENT: Positive: Hearing grossly normal Neck: Positive: Supple Respiratory/Lung Sounds: Positive: Breath Sounds Present Cardiovascular: Positive: RRR Abdomen Description: Positive: Soft, Other: - mild diffuse lower abd tenderness. Negative: Distended, Guarding Bowel Sounds: Positive: Present Musculoskeletal: Positive: Strength/ROM Intact Neurological: Positive: Alert, Oriented to Person Place, Time Psychiatric: Positive: Affect/Mood Appropriate Diagnostics - Vital Signs Vital Signs Temp Pulse Resp BP Pulse Ox 11/26/16 22:16 99.5 F 76 16 146/81 98 11/26/16 20:33 98.3 F 76 19 129/73 97 - Laboratory Result Diagrams: 11/26/16 23:45 11/26/16 23:45 Lab Statement: Any lab studies that have been ordered have been reviewed, and results considered in the medical decision making process. - CT A/P CT Interpretation: Positive (See Comments) - IMPRESSION: Moderate sigmoid diverticulitis without abscess or free air. 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 is a 36 yo male presenting to [facility] with 6/10 abd pain for the past 3 days with N/V/D, after not following up with a surgeon following his Dx of diverticulitis a few months ago. Pt medication list reviewed this visit. In the ED course he received zofran for nausea control , morphine for pain, toradol for pain, tylenol, and IV fluids. His CT A/P suggests moderate sigmoid diverticulitis without abscess or free air. In the ED course he also received flagyl and levaquin. After clinical examination and review of his lab and imaging studies, he will be discharged home with diverticulitis with appropriate instructions. - Diagnoses Differential Diagnosis/HQI/PQRI: Diverticulitis Provider Diagnoses: Diverticulitis Discharge - Discharge Plan Condition: Improved Disposition: HOME Prescriptions: Levofloxacin TAB* [Levaquin TAB*] 500 mg PO DAILY #7 tab Metronidazole [Flagyl 500 MG TAB] 500 mg PO TID #20 tab Patient Education Materials: Diverticulitis (ED), Diverticulitis Diet (ED) Referrals: [facility] [place] [facility] [place]Outside] - 2 Days Torres Mosley MD [Medical Doctor] - 2 Days Additional Instructions: Please follow up with the primary care physician and specialist provided regarding your visit to the emergency department today. Return to the emergency department with any new or recurring symptoms. The documentation as recorded by the krystian vázquez Timothy accurately reflects the service I personally performed and the decisions made by me, Kyle Alcocer MD.
[2016-11-26 23:53] LABS: Hematocrit 41 % (42-52); Hemoglobin 13.9 g/dl (14.0-18.0); Mean Corpuscular HGB Conc 34 g/dl (31-36); Mean Corpuscular Hemoglobin 29 pg (27-31); Mean Corpuscular Volume 84 fL (80-94); Mean Platelet Volume 8 um3 (7.4-10.4); Red Blood Count 4.85 10^6/ul (4.0-5.4); Red Cell Distribution Width 14 % (10.5-15); White Blood Count 9.2 10^3/ul (3.5-10.8)
[2016-11-27 00:09] LABS: Albumin 3.5 g/dL (3.2-5.2); BUN/Creatinine Ratio 14.6 (8-20); C Reactive Protein 47.41 mg/L (< 5.00); Calcium 8.5 mg/dL (8.6-10.3); EGFR African American 137.5 (>60); EGFR Non-African American 106.9 (>60); Globulin 2.7 g/dL (2-4); Potassium 3.5 mmol/L (3.5-5.0); Total Bilirubin 0.3 mg/dL (0.2-1.0); Total Protein 6.2 g/dL (6.4-8.9)
[2016-11-27] MEDS ORDERED: Iohexol 300* (CONTRAST) 10 ML SDV IV ONE (00:20)
[2016-11-27] MEDS ORDERED: Morphine INJ* 2 MG/ML 1 ML SYRINGE IV ONE (00:55)
[2016-11-27] MEDS ORDERED: Acetaminophen TAB* 325 MG PO ONE (01:31)
[2016-11-27] MEDS ORDERED: Levofloxacin 500 MG IVPREMIX(* 500 MG/100 ML BAG IVPB ONE (02:23)
[2016-11-27] MEDS ORDERED: metroNIDAZOLE IV 500 MG/100ML* 500 MG/100 ML BAG IVPB ONE (02:24)
[2016-11-27] MEDS ORDERED: Ketorolac INJ* 30 MG/ML 1 ML VIAL IV PUSH ONE (03:01)
[2016-11-27 05:54] VITALS: BP 100/60
--- NOTE | 2016-11-27 07:59 | RAD ---
INDICATION: Lower abdominal pain. COMPARISON: Comparison is made with prior CTs of the abdomen and pelvis from July 12, 2016 and July 28, 2016. TECHNIQUE: A CT scan of the abdomen and pelvis was performed with intravenous and oral contrast following intravenous injection of 145 ml of Omnipaque 300 nonionic contrast. Contiguous axial sections were obtained from the lung bases through the symphysis pubis. Images were reconstructed in the coronal and sagittal planes. FINDINGS: There is mild dependent bilateral lower lobe subsegmental atelectasis. No pleural effusion is present. The liver is normal in size without significant focal abnormality. The spleen is mildly enlarged and appears to have decreased slightly in size from the prior study. The gallbladder is contracted. No calcified gallstones are seen. The pattern is present within normal limits. The kidneys and adrenal glands are normal in size. No hydronephrosis is seen. No significant focal renal abnormality is seen. The aorta is normal in caliber and demonstrates homogeneous contrast opacification. No significant enlarged retroperitoneal lymph nodes are seen. The stomach, small and large bowel appear nondistended. The appendix is within normal limits. There is mild to moderate descending and sigmoid diverticulosis. There is thickening of the wall of the sigmoid colon with stranding in the adjacent mesenteric fat. These findings are nonspecific although most consistent with diverticulitis. No abscess is seen. No free intraperitoneal air or fluid is seen. No significant focal osseous abnormality is seen. IMPRESSION: 1. THICKENING OF THE WALL OF THE SIGMOID COLON WITH STRANDING IN THE ADJACENT MESENTERIC FAT NONSPECIFIC ALTHOUGH MOST CONSISTENT WITH DIVERTICULITIS. NO ABSCESS IS SEEN. RECOMMEND CLINICAL CORRELATION AND FOLLOW-UP. 2. MILD SPLENOMEGALY, SLIGHTLY DECREASED IN SIZE.
== END 2016-11-27 05:35 | disposition home or self-care (01) ==
LOC: ED 20:21
DX: K57.92 Diverticulitis of intestine, part unspecified, without perforation or abscess without bleeding (principal); R11.2 Nausea with vomiting, unspecified; R19.7 Diarrhea, unspecified; F17.210 Nicotine dependence, cigarettes, uncomplicated
CPT/HCPCS: 36415; 74177; 80053; 83605; 83690; 85025; 86140; 96374; 96375; 99284; A9270-GY; J1885; J1956; J2270; J2405; Q9967

== ENCOUNTER 2016-12-24 12:24 | Emergency (ER) | payer SELFPAY ==
[2016-12-24 13:02] LABS: Hematocrit 47 % (42-52); Hemoglobin 15.8 g/dl (14.0-18.0); Mean Corpuscular HGB Conc 34 g/dl (31-36); Mean Corpuscular Hemoglobin 29 pg (27-31); Mean Corpuscular Volume 87 fL (80-94); Mean Platelet Volume 9 um3 (7.4-10.4); Red Blood Count 5.45 10^6/ul (4.0-5.4); Red Cell Distribution Width 13 % (10.5-15); White Blood Count 6.6 10^3/ul (3.5-10.8)
[2016-12-24 13:17] LABS: Albumin 4.2 g/dL (3.2-5.2); Calcium 9.4 mg/dL (8.6-10.3); EGFR African American 103.4 (>60); EGFR Non-African American 80.4 (>60); Globulin 2.7 g/dL (2-4); Potassium 3.5 mmol/L (3.5-5.0); Total Bilirubin 0.7 mg/dL (0.2-1.0); Total Protein 6.9 g/dL (6.4-8.9)
[2016-12-24 13:19] LABS: Troponin I 0.01 ng/mL (<0.04)
--- NOTE | 2016-12-24 13:30 | RAD ---
Indication: Chest pain. Single frontal view of the chest performed at 1230 hours was reviewed. Comparison is made with previous exam dated December 15, 2014. No mediastinal shift is noted. Heart is of normal size and configuration. Lung ng appear clear. IMPRESSION: NO ACTIVE CARDIOPULMONARY DISEASE IS NOTED.
[2016-12-24] MEDS ORDERED: Ketorolac INJ* 30 MG/ML 1 ML VIAL IV PUSH ONE (13:38)
[2016-12-24 13:54] LABS: TSH (Thyroid Stimulating Horm) 0.62 mcIU/mL (0.34-5.60)
[2016-12-24 16:43] VITALS: BP 110/59
--- NOTE | 2016-12-25 19:36 | ED ---
Sinan Willis Alfonso, scribed for Douglas Pichardo MD on 12/24/16 at 1257 . HPI Chest Pain - HPI Summary HPI Summary: This patient is a 36 year old M presenting to [facility] with a chief complaint of sharp CP since 1 hour ago. He reports I was out on the tractor and felt weak, and I fell asleep eating a bowl of cereal and woke up with chest pain. Pt rates the pain 4/10 in severity. Symptoms aggravated and alleviated by nothing. Pt reports N/V, SOB, diaphoresis, and weakness. Denies PMHx or PSHx. Tobacco abuse disorder. - History of Current Complaint Chief Complaint: EDChestPainROMI Time Seen by Provider: 12/24/16 12:31 Hx Obtained From: Patient Onset/Duration: Started Hours Ago - 1, Still Present Timing: Constant Initial Severity: Moderate Current Severity: Moderate Pain Intensity: 4 Pain Scale Used: 0-10 Numeric Character: Sharp/Stabbing Aggravating Factor(s): Nothing Alleviating Factor(s): Nothing Associated Signs and Symptoms: Positive: Chest Pain, Weakness, Shortness of Breath, Diaphoresis, Nausea, Vomiting - Additional Pertinent History Primary Care Physician: [id number] - Allergy/Home Medications Allergies/Adverse Reactions: Allergies Allergy/AdvReac Type Severity Reaction Status Date / Time No Known Allergies Allergy Verified 12/24/16 12:52 PMH/Surg Hx/FS Hx/Imm Hx Endocrine/Hematology History: Denies: Hx Diabetes, Hx Thyroid Disease Cardiovascular History: Denies: Hx Congestive Heart Failure, Hx Hypertension Respiratory History: Denies: Hx Chronic Obstructive Pulmonary Disease (COPD) GI History: Reports: Other GI Disorders - diverticulitis Denies: Hx Ulcer History: Denies: Hx Renal Disease Musculoskeletal History: Reports: Hx Back Problems Sensory History: Denies: Hx Contacts or Glasses Opthamlomology History: Denies: Hx Contacts or Glasses - Surgical History Surgery Procedure, Year, and Place: LEFT ARM NODES REMOVED S/P CAT SCRATCH FEVER 20 YEARS AGO Infectious Disease History: No Infectious Disease History: Denies: Hx Clostridium Difficile, Hx Hepatitis, Hx Human Immunodeficiency Virus (HIV), Hx of Known/Suspected MRSA, Hx Shingles, Hx Tuberculosis, Hx Known/ Suspected VRE, Hx Known/Suspected VRSA, History Other Infectious Disease, Traveled Outside the [place] in Last 30 Days - Family History Known Family History: Positive: Cardiac Disease - grandmother, Hypertension, Diabetes - father Family History: R & n/C - Social History Alcohol Use: None Hx Substance Use: No Substance Use Type: Reports: None Substance Use Comment - Amount & Last Used: History of marijuana, pt denies now Hx Tobacco Use: Yes Smoking Status (MU): Light Every Day Tobacco Smoker Type: Cigarettes Amount Used/How Often: 1/2 PPD Length of Time of Smoking/Using Tobacco: 10+ YEARS Have You Smoked in the Last Year: Yes Review of Systems Positive: Skin Diaphoresis Positive: Chest Pain Positive: Shortness Of Breath Positive: Vomiting, Nausea Positive: Weakness All Other Systems Reviewed And Are Negative: Yes Physical Exam - Summary Physical Exam Summary: VITAL SIGNS: Reviewed. GENERAL: Patient is a well-developed and nourished male who is lying comfortable in the stretcher. Patient is not in any acute respiratory distress. HEAD AND FACE: No signs of trauma. No ecchymosis, hematomas or skull depressions. No sinus tenderness. EYES: PERRLA, EOMI x 2, No injected conjunctiva, no nystagmus. EARS: Hearing grossly intact. Ear canals and tympanic membranes are within normal limits. MOUTH: Oropharynx within normal limits. NECK: Supple, trachea is midline, no adenopathy, no JVD, no carotid bruit, no c- spine tenderness, neck with full ROM. CHEST: Symmetric, tender at palpation on the left side of the chest. LUNGS: Clear to auscultation bilaterally. No wheezing or crackles. CVS: Regular rate and rhythm, S1 and S2 present, no murmurs or gallops appreciated. ABDOMEN: Soft, non-tender. No signs of distention. No rebound no guarding, and no masses palpated. Bowel sounds are normal. EXTREMITIES: FROM in all major joints, no edema, no cyanosis or clubbing. NEURO: Alert and oriented x 3. No acute neurological deficits. Speech is normal and follows commands. SKIN: Dry and warm Triage Information Reviewed: Yes Vital Signs On Initial Exam: Initial Vitals Temp Pulse Resp BP Pulse Ox 97.3 F 99 20 120/95 99 12/24/16 12:24 12/24/16 12:24 12/24/16 12:24 12/24/16 12:24 12/24/16 12:24 Vital Signs Reviewed: Yes Diagnostics - Vital Signs Vital Signs Temp Pulse Resp BP Pulse Ox 12/24/16 12:35 97.3 F 82 18 127/90 97 12/24/16 12:24 97.3 F 99 20 120/95 99 - Laboratory Lab Results: Lab Results 12/24/16 12/24/16 12/24/16 Range/Units 12:45 12:45 12:45 WBC 6.6 (3.5-10.8) 10^3/ul RBC 5.45 H (4.0-5.4) 10^6/ul Hgb 15.8 (14.0-18.0) g/dl Hct 47 (42-52) % MCV 87 (80-94) fL MCH 29 (27-31) pg MCHC 34 (31-36) g/dl RDW 13 (10.5-15) % Plt Count 237 (150-450) 10^3/ul MPV 9 (7.4-10.4) um3 Neut % (Auto) 57.1 (38-83) % Lymph % (Auto) 28.6 (25-47) % [place] % (Auto) 12.0 H (1-9) % Eos % (Auto) 1.4 (0-6) % Baso % (Auto) 0.9 (0-2) % Absolute Neuts (auto) 3.8 (1.5-7.7) 10^3/ul Absolute Lymphs (auto) 1.9 (1.0-4.8) 10^3/ul Absolute Monos (auto) 0.8 (0-0.8) 10^3/ul Absolute Eos (auto) 0.1 (0-0.6) 10^3/ul Absolute Basos (auto) 0.1 (0-0.2) 10^3/ul Absolute Nucleated RBC 0 10^3/ul Nucleated RBC % 0.1 INR (Anticoag Therapy) (0.89-1.11) Sodium 136 (133-145) mmol/L Potassium 3.5 (3.5-5.0) mmol/L Chloride 101 (101-111) mmol/L Carbon Dioxide 26 (22-32) mmol/L Anion Gap 9 (2-11) mmol/L BUN 21 (6-24) mg/dL Creatinine 1.05 (0.67-1.17) mg/dL Est GFR ( Amer) 103.4 (>60) Est GFR (Non-Af Amer) 80.4 (>60) BUN/Creatinine Ratio 20.0 (8-20) Glucose 158 H (70-100) mg/dL Lactic Acid 2.1 H* (0.5-2.0) mmol/L Calcium 9.4 (8.6-10.3) mg/dL Magnesium 2.0 (1.9-2.7) mg/dL Total Bilirubin 0.70 (0.2-1.0) mg/dL AST 19 (13-39) U/L ALT 14 (7-52) U/L Alkaline Phosphatase 80 (34-104) U/L Total Creatine Kinase 255 H (10-223) U/L CK-MB (CK-2) 5.8 (0.6-6.3) ng/mL Troponin I 0.01 (<0.04) ng/mL B-Natriuretic Peptide ( - 100) pg/mL Total Protein 6.9 (6.4-8.9) g/dL Albumin 4.2 (3.2-5.2) g/dL Globulin 2.7 (2-4) g/dL Albumin/Globulin Ratio 1.6 (1-3) TSH 0.62 (0.34-5.60) mcIU/mL 12/24/16 12/24/16 12/24/16 Range/Units 12:45 12:45 15:26 WBC (3.5-10.8) 10^3/ul RBC (4.0-5.4) 10^6/ul Hgb (14.0-18.0) g/dl Hct (42-52) % MCV (80-94) fL MCH (27-31) pg MCHC (31-36) g/dl RDW (10.5-15) % Plt Count (150-450) 10^3/ul MPV (7.4-10.4) um3 Neut % (Auto) (38-83) % Lymph % (Auto) (25-47) % [place] % (Auto) (1-9) % Eos % (Auto) (0-6) % Baso % (Auto) (0-2) % Absolute Neuts (auto) (1.5-7.7) 10^3/ul Absolute Lymphs (auto) (1.0-4.8) 10^3/ul Absolute Monos (auto) (0-0.8) 10^3/ul Absolute Eos (auto) (0-0.6) 10^3/ul Absolute Basos (auto) (0-0.2) 10^3/ul Absolute Nucleated RBC 10^3/ul Nucleated RBC % INR (Anticoag Therapy) 0.92 (0.89-1.11) Sodium (133-145) mmol/L Potassium (3.5-5.0) mmol/L Chloride (101-111) mmol/L Carbon Dioxide (22-32) mmol/L Anion Gap (2-11) mmol/L BUN (6-24) mg/dL Creatinine (0.67-1.17) mg/dL Est GFR ( Amer) (>60) Est GFR (Non-Af Amer) (>60) BUN/Creatinine Ratio (8-20) Glucose (70-100) mg/dL Lactic Acid (0.5-2.0) mmol/L Calcium (8.6-10.3) mg/dL Magnesium (1.9-2.7) mg/dL Total Bilirubin (0.2-1.0) mg/dL AST (13-39) U/L ALT (7-52) U/L Alkaline Phosphatase (34-104) U/L Total Creatine Kinase (10-223) U/L CK-MB (CK-2) (0.6-6.3) ng/mL Troponin I 0.01 (<0.04) ng/mL B-Natriuretic Peptide 11 ( - 100) pg/mL Total Protein (6.4-8.9) g/dL Albumin (3.2-5.2) g/dL Globulin (2-4) g/dL Albumin/Globulin Ratio (1-3) TSH (0.34-5.60) mcIU/mL Result Diagrams: 12/24/16 12:45 12/24/16 12:45 Lab Statement: Any lab studies that have been ordered have been reviewed, and results considered in the medical decision making process. - CT CXR CT Interpretation Completed By: Radiologist - NO ACTIVE CARDIOPULMONARY DISEASE IS NOTED. - EKG 1233 Cardiac Rate: NL - BPM 81 EKG Rhythm: Sinus Rhythm EKG Interpretation: No ST elevation Chest Pain Course/Dx - Course Course Of Treatment: This patient is a 36 year old M presenting to [facility] with a chief complaint of sharp CP since 1 hour ago. He reports I was out on the tractor and felt weak, and I fell asleep eating a bowl of cereal and woke up with chest pain. Pt rates the pain 4/10 in severity. Symptoms aggravated and alleviated by nothing. Pt reports N/V, SOB, diaphoresis, and weakness. Denies PMHx or PSHx. Tobacco abuse disorder. Assessment/Plan: Test results without significant abnormalities expect for glucose of 158, lactic acid of 2.1 and CPK of 255. Troponin of 0.01 and second Troponin 4 hours later of 0.01. CXR reveals NO ACTIVE CARDIOPULMONARY DISEASE IS NOTED. The patients pain is a sharp pain. He has no comorbidities so I have low suspicion of acute coronary syndrome. I have low suspicion for a PE since heart rate is within normal limits and patient is not hypoxic. In the ED patient given Toradol for the pain and the pain improved. Therefore, the patient will be discharged home with PCP follow up. Patient is hemodynamically stable and A&Ox3. - Chest Pain Differential Diagnosis/HQI/PQRI: ACS, Angina, CHF, Chest Wall - Diagnoses Provider Diagnoses: Chest pain Discharge - Discharge Plan Condition: Stable Disposition: HOME Patient Education Materials: Chest Pain (ED) Referrals: [facility] [place] [place] [facility] [Outside] - 2 Days The documentation as recorded by the Sinan vázquez Alfonso accurately reflects the service I personally performed and the decisions made by me, Douglas Pichardo MD.
== END 2016-12-24 16:48 | disposition home or self-care (01) ==
LOC: ED 12:24
DX: R07.9 Chest pain, unspecified (principal); F17.210 Nicotine dependence, cigarettes, uncomplicated
CPT/HCPCS: 36415; 71010; 80053; 82550; 82553; 83605; 83735; 83880; 84443; 84484; 85025; 85610; 93005; 96374; 99282; J1885

== ENCOUNTER 2018-03-04 21:47 | Emergency (ER) | payer OTHER ==
--- NOTE | 2018-03-05 02:53 | ED ---
Substance Abuse/Use - HPI Summary HPI Summary: Patient is a 37 y/o M presenting to ED w/ the desire to be detoxed. He reports Hx of meth usage, with last usage being three days ago. Patient reports that he is currently trying to get clean, but he has been experiencing body aches. He denies any other withdrawal Sx. Patient has not gone to any detox places before coming to ED, denies any home medications. He reports taking 3-4 grams of meth a day previously. Associated severity is rated 5/10 on triage with nothing noted to aggravate/alleviate Sx. Allergies are reviewed. - History Of Current Complaint Chief Complaint: EDDetoxRequest Stated Complaint: DETOX Time Seen by Provider: 03/05/18 02:31 Hx Obtained From: Patient Onset/Duration of Drug/ETOH Abuse: Days - last meth usage three days ago, body aches since Ingestion History: Type/Name Of Drug - meth Severity Currently: Moderate - 5/10 Aggravating Factor(s): Nothing Alleviating Factor(s): Nothing Associated Signs And Symptoms: Other: - body aches - Allergies/Home Medications Allergies/Adverse Reactions: Allergies Allergy/AdvReac Type Severity Reaction Status Date / Time No Known Allergies Allergy Verified 03/04/18 21:52 PMH/Surg Hx/FS Hx/Imm Hx Endocrine/Hematology History: Denies: Hx Diabetes, Hx Thyroid Disease Cardiovascular History: Denies: Hx Congestive Heart Failure, Hx Hypertension Respiratory History: Denies: Hx Chronic Obstructive Pulmonary Disease (COPD) GI History: Reports: Other GI Disorders - diverticulitis Denies: Hx Ulcer History: Denies: Hx Renal Disease Musculoskeletal History: Reports: Hx Back Problems Sensory History: Denies: Hx Contacts or Glasses Opthamlomology History: Denies: Hx Contacts or Glasses - Surgical History Surgery Procedure, Year, and Place: LEFT ARM NODES REMOVED S/P CAT SCRATCH FEVER 20 YEARS AGO Infectious Disease History: No Infectious Disease History: Denies: Hx Clostridium Difficile, Hx Hepatitis, Hx Human Immunodeficiency Virus (HIV), Hx of Known/Suspected MRSA, Hx Shingles, Hx Tuberculosis, Hx Known/ Suspected VRE, Hx Known/Suspected VRSA, History Other Infectious Disease, Traveled Outside the [place] in Last 30 Days - Family History Known Family History: Positive: Cardiac Disease - grandmother, Hypertension, Diabetes - father Family History: R & n/C - Social History Alcohol Use: None Hx Substance Use: No Substance Use Type: Reports: Other Substance Use Comment - Amount & Last Used: History of marijuana, pt denies now , meth Hx Tobacco Use: Yes Smoking Status (MU): Light Every Day Tobacco Smoker Type: Cigarettes Amount Used/How Often: 1/2 PPD Length of Time of Smoking/Using Tobacco: 10+ YEARS Have You Smoked in the Last Year: Yes Review of Systems Negative: Fever - on vitals, temp is 98.1 F Negative: Palpitations Positive: Other - body aches All Other Systems Reviewed And Are Negative: Yes Physical Exam - Summary Physical Exam Summary: VITAL SIGNS: Reviewed. GENERAL: Patient is a well-developed and nourished male who is lying comfortable in the stretcher. Patient is not in any acute respiratory distress. HEAD AND FACE: No signs of trauma. No ecchymosis, hematomas or skull depressions. No sinus tenderness. EYES: PERRLA, EOMI x 2, No injected conjunctiva, no nystagmus. EARS: Hearing grossly intact. Ear canals and tympanic membranes are within normal limits. MOUTH: Oropharynx within normal limits. NECK: Supple, trachea is midline, no adenopathy, no JVD, no carotid bruit, no c- spine tenderness, neck with full ROM. CHEST: Symmetric, no tenderness at palpation LUNGS: Clear to auscultation bilaterally. No wheezing or crackles. CVS: Regular rate and rhythm, S1 and S2 present, no murmurs or gallops appreciated. ABDOMEN: Soft, non-tender. No signs of distention. No rebound no guarding, and no masses palpated. Bowel sounds are normal. EXTREMITIES: FROM in all major joints, no edema, no cyanosis or clubbing. NEURO: Alert and oriented x 3. No acute neurological deficits. Speech is normal and follows commands. SKIN: Dry and warm Triage Information Reviewed: Yes Vital Signs On Initial Exam: Initial Vitals Temp Pulse Resp BP Pulse Ox 98.1 F 73 16 112/94 99 03/04/18 21:49 03/04/18 21:49 03/04/18 21:49 03/04/18 21:49 03/04/18 21:49 Vital Signs Reviewed: Yes Diagnostics - Vital Signs Vital Signs Temp Pulse Resp BP Pulse Ox 03/04/18 23:51 97.4 F 89 16 139/57 99 03/04/18 21:49 98.1 F 73 16 112/94 99 - Laboratory Lab Statement: Any lab studies that have been ordered have been reviewed, and results considered in the medical decision making process. Course/Dx - Course Course Of Treatment: Patient is a 37 y/o M presenting to ED w/ the desire to be detoxed. He reports Hx of meth usage, with last usage being three days ago. Patient reports that he is currently trying to get clean, but he has been experiencing body aches. He denies any other withdrawal Sx. Patient has not gone to any detox places before coming to ED, denies any home medications. He reports taking 3-4 grams of meth a day previously. Associated severity is rated 5/10 on triage with nothing noted to aggravate/alleviate Sx. Physical exam showed no signs of withdrawal and patient does not need any medication for withdrawal. Patient was given phone numbers for outpatient detox care. He understands and is agreeable with this plan. Dx of substance abuse. - Diagnoses Provider Diagnoses: Substance abuse Discharge - Sign-Out/Discharge Documenting (check all that apply): Patient Departure - DISCHARGE - Discharge Plan Condition: Stable Disposition: HOME Patient Education Materials: Methamphetamine Abuse (ED) Referrals: [facility] [Outside] - 2 Days Additional Instructions: RETURN TO THE EMERGENCY DEPARTMENT FOR CHANGING OR WORSENING SYMPTOMS. FOLLOW UP WITH PRIMARY CARE PHYSICIAN AND SUBSTANCE ABUSE HELP RESOURCES IN 1-2 DAYS. - Billing Disposition and Condition Condition: STABLE Disposition: Home - Attestation Statements Document Initiated by Scribe: Yes Documenting Scribe: Neymar Echols Provider For Whom Karinee is Documenting (Include Credential): Carole Donovan MD Scribe Attestation: Neymar Willis scribed for Carole Donovan MD on 03/05/18 at 0631. Scribe Documentation Reviewed: Yes Provider Attestation: The documentation as recorded by the radhaibNeymar marroquin accurately reflects the service I personally performed and the decisions made by me, Carole Donovan MD
[2018-03-05 02:59] VITALS: BP 157/89
== END 2018-03-05 02:56 | disposition home or self-care (01) ==
LOC: ED 21:47
DX: F15.10 Other stimulant abuse, uncomplicated (principal); F17.210 Nicotine dependence, cigarettes, uncomplicated
CPT/HCPCS: 99281

== ENCOUNTER 2018-03-22 20:10 | Emergency (ER) | payer OTHER ==
[2018-03-22 20:17] VITALS: BP 135/83
== END 2018-03-22 20:50 | disposition left against medical advice (07) ==
LOC: ED 20:10
DX: R07.9 Chest pain, unspecified (principal); Z53.21 Procedure and treatment not carried out due to patient leaving prior to being seen by health care provider
CPT/HCPCS: 93005

== ENCOUNTER 2018-08-12 18:45 | Emergency (ER) | payer OTHER ==
[2018-08-12 19:23] VITALS: BP 132/98
[2018-08-12] MEDS ORDERED: Tetan/Diph/Pertus SYR(Tdap)* 0.5 ML SYR(BOOSTRIX) use SYR IM ONE (20:47)
[2018-08-12] MEDS ORDERED: cefTRIAXone VIAL(*) 1,000 MG VIAL IM ONE (20:47)
[2018-08-12] MEDS ORDERED: Hydrocortisone 1% CREAM* 30 GM TUBE TOPICAL ONE (20:48)
[2018-08-12] MEDS ORDERED: Lidocaine 1%* 5 ML VIAL ONE (20:57)
[2018-08-12] MEDS ORDERED: Lidocaine 2% PF * 5 ML VIAL INJ ONE (21:24)
[2018-08-12] MEDS ORDERED: Lidocaine 1%* 5 ML VIAL INJ ONE (21:39)
--- NOTE | 2018-09-12 09:34 | UC ---
General HPI - HPI Summary HPI Summary: RN notes - red raised rash on lower legs and feet for a couple of days. there is also a fluid filled spot on his right arm and states that he has a tooth abcess in the right upper gums. states he has a dental appt but does not like to go to the doctor Has been working outside a lot recently, cold and wet weather. - History of Current Complaint Chief Complaint: UCSkin Stated Complaint: SKIN COMPLAINT Time Seen by Provider: 08/12/18 20:14 Hx Obtained From: Patient Pain Intensity: 0 - Allergy/Home Medications Allergies/Adverse Reactions: Allergies Allergy/AdvReac Type Severity Reaction Status Date / Time No Known Allergies Allergy Verified 03/22/18 20:17 PMH/Surg Hx/FS Hx/Imm Hx Previously Healthy: Yes - does not go to the doctor often - Surgical History Surgical History: None Surgery Procedure, Year, and Place: LEFT ARM NODES REMOVED S/P CAT SCRATCH FEVER 20 YEARS AGO - Family History Known Family History: Positive: Cardiac Disease - grandmother, Hypertension, Diabetes - father Family History: R & n/C - Social History Alcohol Use: None Substance Use Type: Other Substance Use Comment - Amount & Last Used: History of marijuana, pt denies now , meth Smoking Status (MU): Light Every Day Tobacco Smoker Type: Cigarettes Amount Used/How Often: 1/2 PPD Length of Time of Smoking/Using Tobacco: 10+ YEARS Have You Smoked in the Last Year: Yes Household Exposure Type: Cigarettes - Immunization History Most Recent Influenza Vaccination: NONE Most Recent Tetanus Shot: 2013 Most Recent Pneumonia Vaccination: NONE Review of Systems All Other Systems Reviewed And Are Negative: Yes Constitutional: Positive: Negative Skin: Positive: Rash Eyes: Positive: Negative ENT: Positive: Other - see hpi Respiratory: Positive: Negative Cardiovascular: Positive: Negative Gastrointestinal: Positive: Negative Genitourinary: Positive: Negative Motor: Positive: Negative Neurovascular: Positive: Negative Musculoskeletal: Positive: Other: - see hpi Neurological: Positive: Negative Psychological: Positive: Negative Is Patient Immunocompromised?: No Physical Exam Triage Information Reviewed: Yes Appearance: Well-Appearing, Well-Nourished Vital Signs: Initial Vital Signs Temp 98.9 F 08/12/18 19:15 Pulse 79 08/12/18 19:15 Resp 16 08/12/18 19:15 BP 132/98 08/12/18 19:15 Pulse Ox 100 08/12/18 19:15 Vital Signs Reviewed: Yes Eye Exam: Normal ENT: Positive: TM dull, Other - + tender R upper tooth, without nancy purulence or redness. Very tender to pressure. + scattered gingivitis. Tongue not elevated. Poor dentition. MMM. Trachea midline. Dental Exam: Other - see above Neck exam: Normal Neck: Positive: Supple, Nontender Respiratory Exam: Normal Respiratory: Positive: Chest non-tender, Lungs clear, Normal breath sounds, No respiratory distress, No accessory muscle use Cardiovascular Exam: Normal Cardiovascular: Positive: RRR, No Murmur, Pulses Normal, Brisk Capillary Refill Abdominal Exam: Normal Abdomen Description: Positive: Nontender Musculoskeletal Exam: Other - see "skin" re rash Musculoskeletal: Positive: Strength Intact, ROM Intact Neurological Exam: Normal - grossly nonfocal Psychological Exam: Normal - conversing easily and appropriately Skin Exam: Other - BLE + pale olivera, occasionally flaky skin. Macerated both feet. Fairly sharp demarcation. There are several areas of redder discoloration and vasculitis, nonblanching, over leg R>L. Calves similar size. Feet warm to touch. R upper arm - + area of redness, mild, nonblanching, mild fluctuant Course/Dx - Course Course Of Treatment: Last tetanus booster - unclear. Booster given here. Several issues are problematic - rash, infection, dental abscess. The purpuritic skin discoloration is concerning, although may be related to the frequent long time spent in cold water. The feet clearly have trench foot appearance. Will check blood work, abx IM here in [facility]]. Is not interested in going to the ED. He will go to the ED if any problems, worse or new issues, fever, etc. Encouraged to avoid cool, wet envinonment, modify footwear and socks, frequent dry. Encouraged to stop smoking, this is critical, and advised such. F/u PCP encouraged. F/u Dentist encouraged. Questions as posed answered to the best of my ability. - Diagnoses Provider Diagnosis: Peripheral vascular disease, Trench foot, Need for tetanus booster, Toothache Discharge - Sign-Out/Discharge Documenting (check all that apply): Patient Departure All imaging exams completed and their final reports reviewed: No Studies - Discharge Plan Condition: Stable Disposition: HOME Prescriptions: Amoxicillin/Clavulanate TAB* [Augmentin TAB 875*] 875 mg PO BID #20 tab Patient Education Materials: Diphtheria/Acellular Pertussis/Tetanus Booster Vaccine (By injection), How to Stop Smoking (ED), Frostbite (ED), Peripheral Vascular Disease (ED), Purpura (ED) Referrals: [facility] [place] [facility] [Outside] No Primary Care Phys,NOPCP [Primary Care Provider] - Additional Instructions: Your symptoms are consistent with TRENCH FOOT. This is a cold injury that can occur in cold wet areas. VERY IMPORTANT TO KEEP YOUR FEET DRY. ELEVATE as much as possible. Soak 15 min in water / epsom salt x 3-5 days. Hydrocortisone cream as needed to itchy areas on legs. Athlete's foot cream to toes (over the counter). Please follow up with a primary care physician - as soon as possible. Seek medical attention for ANY worse or new problems. Blood pressure 138/92 - high - please have checked by your primary care physician - in the next 4 weeks. - Billing Disposition and Condition Condition: STABLE Disposition: Home
== END 2018-08-12 21:48 | disposition home or self-care (01) ==
LOC: UCEAST 18:45
DX: I73.9 Peripheral vascular disease, unspecified (principal); T69.022A Immersion foot, left foot, initial encounter; T69.021A Immersion foot, right foot, initial encounter; X31.XXXA Exposure to excessive natural cold, initial encounter; Z23 Encounter for immunization; K08.89 Other specified disorders of teeth and supporting structures; F17.210 Nicotine dependence, cigarettes, uncomplicated
CPT/HCPCS: 90471; 90715; 96372; 99213; A9270-GY; G0463; J0696

== ENCOUNTER 2019-07-10 14:47 | Emergency (ER) | payer OTHER ==
[2019-07-10] MEDS ORDERED: oxyCODONE/Acetamin 5/325 MG* TAB PO ONE (15:35)
[2019-07-10] MEDS ORDERED: Penicillin VK 500 MG TAB(NF) PO ONE (15:35)
--- NOTE | 2019-07-10 15:41 | ED ---
Throat Pain/Nasal Congestion - HPI Summary HPI Summary: 39 year old M arriving via private car complains of dental pain after having [address] [facility] today 07/10/2019 1345. Patient states his left upper lateral incisor was infected. He states his dentist did not prescribe him any pain medications or antibiotics. He also reports lateral and heel pain when he wears his work boot. Symptoms rated 10/10 in severity. Symptoms aggravated by nothing. Symptoms alleviated by nothing. Medications reviewed. - History of Current Complaint Chief Complaint: EDDentalPain Time Seen by Provider: 07/10/19 15:28 Hx Obtained From: Patient Onset/Duration: Lasting Hours - today 07/10/2019 1345, Still Present - Allergies/Home Medications Allergies/Adverse Reactions: Allergies Allergy/AdvReac Type Severity Reaction Status Date / Time No Known Allergies Allergy Verified 07/10/19 14:56 PMH/Surg Hx/FS Hx/Imm Hx Endocrine/Hematology History: Denies: Hx Diabetes, Hx Thyroid Disease Cardiovascular History: Denies: Hx Congestive Heart Failure, Hx Hypertension Respiratory History: Denies: Hx Chronic Obstructive Pulmonary Disease (COPD) GI History: Reports: Other GI Disorders - diverticulitis Denies: Hx Ulcer History: Denies: Hx Renal Disease Musculoskeletal History: Reports: Hx Back Problems Sensory History: Denies: Hx Contacts or Glasses Opthamlomology History: Denies: Hx Contacts or Glasses - Surgical History Surgery Procedure, Year, and Place: LEFT ARM NODES REMOVED S/P CAT SCRATCH FEVER 20 YEARS AGO Infectious Disease History: No Infectious Disease History: Denies: Hx Clostridium Difficile, Hx Hepatitis, Hx Human Immunodeficiency Virus (HIV), Hx of Known/Suspected MRSA, Hx Shingles, Hx Tuberculosis, Hx Known/ Suspected VRE, Hx Known/Suspected VRSA, History Other Infectious Disease, Traveled Outside the [place] in Last 30 Days - Family History Known Family History: Positive: Cardiac Disease - grandmother, Hypertension, Diabetes - father - Social History Alcohol Use: None Hx Substance Use: Yes Substance Use Type: Reports: Marijuana 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 (-) Distressed Skin: Warm, Dry HENT: Normocephalic; Atraumatic; Patient is status post extraction of the left lateral incisor and canine, lower right and left molars with poor dentition. No trismus. Mild L cheek swelling Eyes: Conjunctiva normal Neck: Musculoskeletal ROM normal neck. (-) JVD, (-) Stridor Cardio: Rhythm regular, rate normal, Heart sounds normal Pulmonary/Chest wall: Effort normal. (-) Respiratory distress, Abd: ND Musculoskeletal: (-) Edema Lymph: (-) Cervical adenopathy Neuro: Alert, Oriented x3 Psych: Mood and affect Normal Triage Information Reviewed: Yes Vital Signs On Initial Exam: Initial Vitals Temp Pulse Resp BP Pulse Ox 96.9 F 71 19 151/110 98 07/10/19 14:53 07/10/19 14:53 07/10/19 14:53 07/10/19 14:53 07/10/19 14:53 Vital Signs Reviewed: Yes Procedures - Sedation Patient Received Moderate/Deep Sedation with Procedure: No Diagnostics - Vital Signs Vital Signs Temp Pulse Resp BP Pulse Ox 07/10/19 14:53 96.9 F 71 19 151/110 98 - Laboratory Lab Statement: Any lab studies that have been ordered have been reviewed, and results considered in the medical decision making process. EENT Course/Dx - Course Course Of Treatment: 39 y/o male w recent dental extraction presenting with postoperative pain and concern for infection. - Physical exam w well- appearing male, no trismus, no obvious infection but have mild swelling of the left cheek. Patient reports purulent drainage from the left lateral canine that was removed. We'll give patient penicillin, and Percocet for pain. Patient can follow up with his dentist. Regarding his foot pain, patient likely has plantar fasciitis, no trauma, worse w boots and better w his sneakers. - Diagnoses Provider Diagnoses: Plantar fasciitis, Pain, dental, Dental infection Discharge ED - Sign-Out/Discharge Documenting (check all that apply): Patient Departure - Discharge Plan Condition: Stable Disposition: HOME Prescriptions: oxyCODONE/Acetamin 5/325 MG* [Percocet 5/325 TAB*] 1 tab PO Q6H PRN 3 Days #12 tab MDD 4 PRN Reason: Pain Penicillin VK 500 MG TAB(NF) [Penicillin VK 500 mg Tab] 500 mg PO QID 7 Days # 28 tab Patient Education Materials: Dental Abscess (ED), Plantar Fasciitis (ED) Referrals: [facility] [Outside] Additional Instructions: You were seen in the emergency department for dental pain and infection. Please take penicillin and percocet as needed for pain. Please follow up with your primary care doctor in next 2-3 days and return to emergency department for worsening pain, facial swelling, fevers, or concerning symptoms. It was a pleasure taking care of you today. - Billing Disposition and Condition Condition: STABLE Disposition: Home - Attestation Statements Document Initiated by Greg: Yes Documenting Scribe: Kimberly Platt Provider For Whom Greg is Documenting (Include Credential): Allyson Garcia MD Scribe Attestation: IKimberly, scribed for Allyson Garcia MD on 07/10/19 at 1545. Scribe Documentation Reviewed: Yes Provider Attestation: The documentation as recorded by the Kimberly vázquez accurately reflects the service I personally performed and the decisions made by Allyson montes MD Status of Scribe Document: Viewed
[2019-07-10 16:25] VITALS: BP 0/0
[2019-07-10] MEDS ORDERED: Penicillin VK TAB* 250 MG PO ONE (17:00)
== END 2019-07-10 16:24 | disposition home or self-care (01) ==
LOC: ED 14:47
DX: K04.7 Periapical abscess without sinus (principal); K08.89 Other specified disorders of teeth and supporting structures; K08.499 Partial loss of teeth due to other specified cause, unspecified class; M72.2 Plantar fascial fibromatosis; F17.210 Nicotine dependence, cigarettes, uncomplicated
CPT/HCPCS: 99282; A9270-GY

== ENCOUNTER 2020-01-30 09:35 | Inpatient (IN) ==
[2020-01-30] MEDS ORDERED: NS 0.9% 1000 ml BAG 1,000 ML IV ONE ×2 (09:51→10:55)
[2020-01-30] MEDS ORDERED: Ondansetron 4 mg VIAL 2 MG/ML 2 ml VIAL IV ONE (09:59)
[2020-01-30] MEDS ORDERED: Morphine 4 MG/ML VIAL (1 ml) IV ONE (10:02)
[2020-01-30 10:37] LABS: ABS Basophils 0.1 10^3/ul (0-0.2); ABS Eosinophils 0.1 10^3/ul (0-0.6); ABS Lymphocytes 0.5 10^3/ul (1.0-4.8); ABS Neutrophils 12.2 10^3/ul (1.5-7.7); Eosinophil % 0.6 %; Hematocrit 44 % (42-52); Lymphocyte % 3.8 %; Mean Corpuscular HGB Conc 34 g/dL (31-36); Mean Corpuscular Hemoglobin 29 pg (27-31); Mean Corpuscular Volume 86 fL (80-94); Mean Platelet Volume 8.1 fL (7.4-10.4); Platelet Count 209 10^3/uL (150-450); Red Cell Distribution Width 14 % (10-15); White Blood Count 13.9 10^3/uL (3.5-10.8)
[2020-01-30] MEDS ORDERED: Piperacillin/Tazobac ADVAN 3.375 GM in NS 0.9% 100 ml BAG 100 ML IVPB ONE (10:55)
[2020-01-30 10:56] LABS: Albumin 3.9 g/dL (3.2-5.2); Albumin/Globulin Ratio 1.4 (1-3); BUN/Creatinine Ratio 12.8 (8-20); C Reactive Protein 92.46 mg/L (<8.01); Calcium 8.8 mg/dL (8.6-10.3); EGFR African American 120.4 (>60); EGFR Non-African American 99.5 (>60); Globulin 2.7 g/dL (2-4); Potassium 4.2 mmol/L (3.5-5.0); Total Bilirubin 1.2 mg/dL (0.2-1.0); Total Protein 6.6 g/dL (6.4-8.9)
[2020-01-30] MEDS ORDERED: Magnesium Hydroxide LIQ 30 ML UDC PO PRN (12:54)
[2020-01-30] MEDS ORDERED: Ondansetron 4 mg VIAL 2 MG/ML 2 ml VIAL IV PRN (12:54)
[2020-01-30] MEDS ORDERED: Zosyn per Pharmacy NOTE FOLLOW UP SCH (13:00)
[2020-01-30] MEDS: Enoxaparin 40 MG/0.4 ML SYR SUBCUT SCH (14:56)
[2020-01-30] MEDS: NS 0.9% 1000 ml BAG 1,000 ML IV SCH (14:57)
[2020-01-30] MEDS ORDERED: ZOSYN 3.375 GM Q8H per EXTENDED INFUSION IV SCH (15:00)
[2020-01-30] MEDS: ZOSYN 3.375 GM Q8H per EXTENDED INFUSION IV SCH ×2 (15:55→23:42)
[2020-01-30] MEDS ORDERED: Morphine 2 MG/ML SYRINGE IV ONE (20:43)
[2020-01-31] MEDS: Morphine 2 MG/ML SYRINGE IV PRN (04:01)
[2020-01-31] MEDS: NS 0.9% 1000 ml BAG 1,000 ML IV SCH (05:50)
[2020-01-31] MEDS ORDERED: oxyCODONE SR 10 mg TAB PO PRN (11:02)
[2020-01-31] MEDS: ZOSYN 3.375 GM Q8H per EXTENDED INFUSION IV SCH ×3 (12:07→23:25)
[2020-01-31] MEDS: Enoxaparin 40 MG/0.4 ML SYR SUBCUT SCH (14:54)
[2020-02-01] MEDS: NS 0.9% 1000 ml BAG 1,000 ML IV SCH ×2 (02:22→23:32)
[2020-02-01] MEDS: ZOSYN 3.375 GM Q8H per EXTENDED INFUSION IV SCH ×3 (07:21→23:34)
[2020-02-01] MEDS: Enoxaparin 40 MG/0.4 ML SYR SUBCUT SCH (13:58)
[2020-02-01] MEDS: Morphine 2 MG/ML SYRINGE IV PRN (19:53)
[2020-02-02] MEDS: ZOSYN 3.375 GM Q8H per EXTENDED INFUSION IV SCH ×2 (08:38→17:01)
[2020-02-02] MEDS: Morphine 2 MG/ML SYRINGE IV PRN (08:47)
[2020-02-02 10:39] LABS: ABS Basophils 0.1 10^3/ul (0-0.2); ABS Eosinophils 0.2 10^3/ul (0-0.6); ABS Lymphocytes 1.4 10^3/ul (1.0-4.8); ABS Monocytes 1.1 10^3/ul (0-0.8); ABS Neutrophils 3.3 10^3/ul (1.5-7.7); Hematocrit 38 % (42-52); Hemoglobin 13.5 g/dL (14.0-18.0); Lymphocyte % 23.2 %; Mean Corpuscular HGB Conc 35 g/dL (31-36); Mean Corpuscular Hemoglobin 30 pg (27-31); Mean Corpuscular Volume 84 fL (80-94); Platelet Count 203 10^3/uL (150-450); Red Blood Count 4.57 10^6 /uL (4.18-5.48); Red Cell Distribution Width 13 % (10-15)
[2020-02-02 11:11] LABS: BUN/Creatinine Ratio 6.1 (8-20); C Reactive Protein 68.76 mg/L (<8.01); Calcium 8.6 mg/dL (8.6-10.3); EGFR African American 127.2 (>60); EGFR Non-African American 105.1 (>60); Potassium 3.7 mmol/L (3.5-5.0)
[2020-02-02] MEDS: Enoxaparin 40 MG/0.4 ML SYR SUBCUT SCH (14:48)
[2020-02-02 17:06] VITALS: BP 124/72
== END 2020-02-02 17:40 | disposition home or self-care (01) | DRG 720 ==
LOC: MED 09:35 → ED 09:35 → OBSVTOIN 12:54 → MED 14:06
PROVIDERS: ADMIT Internal Medicine; ATTEND Student in an Organized Health Care Education/Training Program